=== PATIENT | male | born 1945 | race African-American/Black ===

== ENCOUNTER 2020-10-11 23:34 | Inpatient (IN) | payer OTHER ==
[~2020-10-11] VITALS: Ht 172.7 cm; Wt 104.8 kg
[2020-10-11] MEDS ORDERED: IPRATROPIUM BROMIDE (0.02%) 0.5MG/2.5ML NEB HHN STA (23:55)
[2020-10-11] MEDS ORDERED: ALBUTEROL (0.083%) 2.5MG/3ML NEB HHN STA (23:55)
[2020-10-11] MEDS ORDERED: METHYLPREDNISOLONE SOD SUCC 125 MG/2 ML VIAL IV STA (23:55)
[2020-10-12] MEDS ORDERED: MAGNESIUM 2 G PREMIX 50 ML IV ONE
[2020-10-12] MEDS ORDERED: ASPIRIN 81MG TABLET PO ONE
[2020-10-12 00:13] LABS: HEMATOCRIT. 40.4 % (42.0-52.0); HEMOGLOBIN. 13.1 g/dL (14.0-18.0); MEAN CORPUSCULAR HEMOGLOBIN 30.5 pg (28.0-32.0); MEAN CORPUSCULAR VOLUME 93.9 fL (80.0-94.0); MEAN PLATELET VOLUME 8.2 fl (7.4-10.4); PLATELET 272 x1000/uL (130-400)
[2020-10-12 00:16] LABS: CHLORIDE 98 mEq/L (98-107)
[2020-10-12 00:22] LABS: CLARITY URINE CLEAR (CLEAR); COLOR URINE YELLOW (YELLOW); KETONES URINE NEGATIVE (NEGATIVE); LEUKOCYTE ESTERASE URINE NEGATIVE (NEGATIVE); NITRITE URINE NEGATIVE (NEGATIVE); OCCULT BLOOD URINE NEGATIVE (NEGATIVE); PROTEIN URINE 3+ (NEGATIVE); SPECIFIC GRAVITY URINE 1.013 (1.005-1.030); UROBILINOGEN URINE 0.2 E.U./dL (0.2-1.0)
[2020-10-12] MEDS ORDERED: FUROSEMIDE 100MG/10ML VIAL IV SCH (01:19)
[2020-10-12] MEDS ORDERED: CALCIUM CHLORIDE 1GM/10ML SYR IV SCH (01:30)
[2020-10-12] MEDS ORDERED: SODIUM BICARBONATE 8.4% 1 MEQ/ML 50ML SYR IV SCH (01:30)
[2020-10-12] MEDS ORDERED: INSULIN REGULAR (HUMULIN R) 300UNITS/3ML VIAL IV SCH (01:30)
[2020-10-12] MEDS ORDERED: DEXTROSE 50% WATER 50ML SYRINGE IV SCH (01:30)
[2020-10-12 02:09] LABS: PLATELET ESTIMATE NORMAL
[2020-10-12] MEDS ORDERED: IPRATROPIUM/ALBUTEROL 0.5-3(2.5)MG/3ML NEB HHN PRN (07:30)
[2020-10-12] MEDS ORDERED: CLONIDINE 0.1MG TABLET PO PRN (07:30)
[2020-10-12] MEDS ORDERED: HYDROCODONE/ACETAMINOPHEN 5/325MG TABLET PO PRN (07:30)
[2020-10-12] MEDS ORDERED: DOCUSATE SODIUM 100MG CAPSULE PO PRN (07:30)
[2020-10-12] MEDS ORDERED: MORPHINE SULFATE 2 MG/ML CPJ (NOT FOR IM USE) IV PRN (07:30)
[2020-10-12] MEDS ORDERED: LORAZEPAM 2MG/ML CPJ IV PRN (07:30)
[2020-10-12] MEDS ORDERED: ONDANSETRON HCL 4MG/2ML INJ IV PRN (07:30)
[2020-10-12] MEDS ORDERED: GUAIFENESIN 200MG/10ML SUGAR FREE UDC PO PRN (07:30)
[2020-10-12] MEDS ORDERED: DIPHENHYDRAMINE 50MG/ML VIAL IV PRN (07:30)
[2020-10-12] MEDS ORDERED: ACETAMINOPHEN 325MG TABLET PO PRN (07:30)
[2020-10-12] MEDS ORDERED: MAGNESIUM/ALUMINUM HYDROXIDE/SIMETHICONE 30ML UDC PO PRN (07:30)
[2020-10-12] MEDS ORDERED: DEXTROSE 50% WATER 50ML SYRINGE IV PRN (07:45)
[2020-10-12] MEDS: INSULIN LISPRO 100 UNITS/ML SUBCUT SCH ×4 (09:05→20:52)
[2020-10-12] MEDS: ENOXAPARIN 40MG/0.4ML SYR SUBCUT SCH (09:28)
[2020-10-12] MEDS: HYDRALAZINE 20MG/ML VIAL IV PRN ×2 (09:28→18:19)
[2020-10-12] MEDS: BLOOD SUGAR DIAGNOSTIC STRIP TEST SCH ×5 (09:29→20:53)
[2020-10-12 09:37] LABS: *AMPHETAMINES SCREEN URINE NEGATIVE (NEGATIVE); *BARBITURATES SCREEN URINE NEGATIVE (NEGATIVE); *BENZODIAZEPINES SCREEN URINE NEGATIVE (NEGATIVE)
[2020-10-12 09:38] LABS: *COCAINE SCREEN URINE NEGATIVE (NEGATIVE); CANNABINOID URINE SCREEN NEGATIVE (NEGATIVE); METHADONE URINE SCREEN NEGATIVE (NEGATIVE); OPIATES URINE SCREEN NEGATIVE (NEGATIVE); PHENCYCLIDINE URINE SCREEN NEGATIVE (NEGATIVE)
[2020-10-12 10:00] VITALS: BP 156/123
[2020-10-12 12:28] LABS: HEMATOCRIT. 38.7 % (42.0-52.0); HEMOGLOBIN. 12.7 g/dL (14.0-18.0); MEAN CORPUSCULAR HEMOGLOBIN 30.8 pg (28.0-32.0); MEAN PLATELET VOLUME 8.1 fl (7.4-10.4); PLATELET 243 x1000/uL (130-400); RED BLOOD CELL COUNT 4.12 mill/uL (4.7-6.1); RED CELL DISTRIBUTION WIDTH 17.8 % (11.6-14.6)
[2020-10-12 12:48] LABS: T4 FREE 1.36 ng/dL (0.76-1.46)
[2020-10-12] MEDS: HYDRALAZINE HCL 50MG TABLET PO SCH ×2 (13:29→20:53)
[2020-10-12] MEDS: FUROSEMIDE 40MG/4ML VIAL IVP SCH ×3 (13:30→20:34)
[2020-10-12] MEDS: SODIUM CHLORIDE 0.9% INJ 3ML FLUSH IVF SCH ×2 (13:30→20:54)
[2020-10-12 13:47] LABS: PLATELET ESTIMATE NORMAL
[2020-10-12 16:00] VITALS: BP 158/94
[2020-10-12] MEDS: IPRATROPIUM/ALBUTEROL 0.5-3(2.5)MG/3ML NEB HHN SCH (16:43)
[2020-10-12 17:11] LABS: CREATINE KINASE MB FRACTION 2.9 ng/mL (0.5-3.6)
[2020-10-12] MEDS ORDERED: EPOE200014 IJ (19:59)
[2020-10-12] MEDS ORDERED: NORT10CA PO (19:59)
[2020-10-12 20:00] VITALS: BP 139/69
[2020-10-12] MEDS ORDERED: PNEUMOCOCCAL 23-VAL P-SAC VAC 0.5 ML IM ONE (20:00)
[2020-10-12] MEDS ORDERED: ATOR-2 PO (20:01)
[2020-10-12] MEDS ORDERED: INSU100V3 SUBCUT (20:02)
[2020-10-12] MEDS ORDERED: DOCU-138 MT (20:05)
[2020-10-12] MEDS ORDERED: ASCO500C15 PO (20:05)
[2020-10-12] MEDS ORDERED: VIT1TABL62 PO (20:06)
[2020-10-12] MEDS ORDERED: FURO20TA4 MT (20:09)
[2020-10-12] MEDS ORDERED: FURO80TA3 MT (20:09)
[2020-10-12] MEDS ORDERED: HYDR100T26 PO (20:11)
[2020-10-12] MEDS ORDERED: CARV25TA47 PO (20:12)
[2020-10-12] MEDS ORDERED: AMLO-504 PO (20:12)
[2020-10-12] MEDS ORDERED: MULT-1146 PO (20:13)
[2020-10-12] MEDS ORDERED: UBID200C35 PO (20:17)
[2020-10-12] MEDS ORDERED: TERA5CAP4 PO (20:19)
[2020-10-12] MEDS ORDERED: SODI650T PO (20:22)
[2020-10-12] MEDS ORDERED: HUM100IN SQ (20:26)
[2020-10-12] MEDS ORDERED: ISOS30TA12 PO (20:27)
[2020-10-12] MEDS ORDERED: POTA-9 PO (20:38)
[2020-10-12] MEDS ORDERED: SENN-178 MT (20:40)
[2020-10-12 22:00] VITALS: BP 168/73
[2020-10-13] VITALS (9 sets, daily range): BP systolic 120–159; BP diastolic 52–99
[2020-10-13 00:26] LABS: CREATINE KINASE MB FRACTION 2.3 ng/mL (0.5-3.6)
[2020-10-13] MEDS: IPRATROPIUM/ALBUTEROL 0.5-3(2.5)MG/3ML NEB HHN SCH ×4 (00:41→20:50)
[2020-10-13] MEDS: SODIUM CHLORIDE 0.9% INJ 3ML FLUSH IVF SCH ×3 (06:26→21:54)
[2020-10-13] MEDS: HYDRALAZINE HCL 50MG TABLET PO SCH ×3 (06:55→21:54)
[2020-10-13] MEDS: BLOOD SUGAR DIAGNOSTIC STRIP TEST SCH ×4 (07:25→21:55)
[2020-10-13] MEDS: FUROSEMIDE 40MG/4ML VIAL IVP SCH ×3 (08:30→18:00)
[2020-10-13] MEDS: ENOXAPARIN 40MG/0.4ML SYR SUBCUT SCH (08:35)
[2020-10-13] MEDS: INSULIN LISPRO 100 UNITS/ML SUBCUT SCH ×4 (08:36→21:57)
[2020-10-13 09:13] LABS: BASOPHILS % 0.1 % (0.0-2.0); EOSINOPHILS % 0.1 % (0.0-5.0); HEMOGLOBIN. 11.8 g/dL (14.0-18.0); LYMPHOCYTES % 9.4 % (20.0-50.0); MEAN CORPUSCULAR VOLUME 94.1 fL (80.0-94.0); MEAN PLATELET VOLUME 8.3 fl (7.4-10.4); MONOCYTES % 10.7 % (2.0-8.0); NEUTROPHILS % 79.7 % (40.0-76.0); PLATELET 245 x1000/uL (130-400); RED BLOOD CELL COUNT 3.82 mill/uL (4.7-6.1); RED CELL DISTRIBUTION WIDTH 17.8 % (11.6-14.6)
[2020-10-13 09:16] LABS: CHLORIDE 98 mEq/L (98-107)
== END 2020-10-13 23:24 | disposition short-term general hospital (02) | DRG 291 ==
LOC: ER 23:34 → 5EST 10-12 01:33 → ENRESERV 10-12 07:58 → EDBEDREQSVC 10-12 08:59 → 5EST 10-12 16:51
PROVIDERS: ADMIT Internal Medicine; ATTEND Internal Medicine
PROC: 5A09357 Assistance with Respiratory Ventilation, Less than 24 Consecutive Hours, Continuous Positive Airway Pressure (ICD-10-PCS; principal; 2020-10-11)
DX: I13.2 Hypertensive heart and chronic kidney disease with heart failure and with stage 5 chronic kidney disease, or end stage renal disease (principal); I50.43 Acute on chronic combined systolic (congestive) and diastolic (congestive) heart failure; J96.21 Acute and chronic respiratory failure with hypoxia; E87.1 Hypo-osmolality and hyponatremia; T81.31XA Disruption of external operation (surgical) wound, not elsewhere classified, initial encounter; N17.9 Acute kidney failure, unspecified; N18.5 Chronic kidney disease, stage 5; E11.51 Type 2 diabetes mellitus with diabetic peripheral angiopathy without gangrene; Z20.822 Contact with and (suspected) exposure to COVID-19; E11.22 Type 2 diabetes mellitus with diabetic chronic kidney disease; E78.5 Hyperlipidemia, unspecified; E87.5 Hyperkalemia; I25.10 Atherosclerotic heart disease of native coronary artery without angina pectoris; I43 Cardiomyopathy in diseases classified elsewhere; J44.9 Chronic obstructive pulmonary disease, unspecified; Y83.8 Other surgical procedures as the cause of abnormal reaction of the patient, or of later complication, without mention of misadventure at the time of the procedure; Y92.89 Other specified places as the place of occurrence of the external cause; Z79.4 Long term (current) use of insulin; Z89.512 Acquired absence of left leg below knee; Z95.1 Presence of aortocoronary bypass graft; Z79.899 Other long term (current) drug therapy
CPT/HCPCS: 36415; 71045; 76770; 80048; 80053; 80061; 80305; 81003; 82270; 82550; 82553; 82570; 82962; 83036; 83605; 83880; 84145; 84156; 84439; 84443; 84484; 85025; 85379; 85651; 86140; 87426; 90732; 93005; 93306; 93970; 94640; 94660; 99291; J0360; J1650; J1815; J1940; J2930; J3475; J3490